=== PATIENT | male | born 1950 | race Caucasian/White ===

== ENCOUNTER → 2016-11-22 | Outpatient (CLI) | payer MEDICARE | LOC: LAB 15:17 | DX: E11.65 Type 2 diabetes mellitus with hyperglycemia (principal) ==

== ENCOUNTER → 2016-12-06 | Outpatient (CLI) | payer MEDICARE | LOC: RAD 16:07 | DX: E11.69 Type 2 diabetes mellitus with other specified complication (principal); R05 Cough ==

== ENCOUNTER → 2016-12-27 | Outpatient (CLI) | payer MEDICARE | LOC: RAD 14:42 | DX: E11.65 Type 2 diabetes mellitus with hyperglycemia (principal); R11.2 Nausea with vomiting, unspecified; R05 Cough ==

== ENCOUNTER → 2017-01-03 | Outpatient (CLI) | payer MEDICARE | LOC: LAB 14:04 | DX: E11.65 Type 2 diabetes mellitus with hyperglycemia (principal); N18.9 Chronic kidney disease, unspecified ==

== ENCOUNTER → 2017-02-07 | Outpatient (CLI) | payer MEDICARE | LOC: LAB 15:33 | DX: E11.65 Type 2 diabetes mellitus with hyperglycemia (principal) ==

== ENCOUNTER → 2017-09-25 | Outpatient (CLI) | payer MEDICARE ==
[2016-11-14 22:34] VITALS: BP 128/86
== END ==
LOC: LAB 15:15
DX: E11.9 Type 2 diabetes mellitus without complications (principal)

== ENCOUNTER 2018-06-04 17:04 | Emergency (ER) | payer MEDICARE ==
[2018-06-04] MEDS ORDERED: AMARYL 2MG T2 MG/TAB PO (17:23)
[2018-06-04] MEDS ORDERED: GLUCOPHAGE500 MG/TAB PO (17:23)
[2018-06-04] MEDS ORDERED: ZESTRIL10 M1 PO (17:24)
[2018-06-04] MEDS ORDERED: MICROZIDE12.5 M1 PO (17:24)
[2018-06-04 17:47] LABS: EOS # 0.3 (0.04-0.40); EOS % 1.7 % (0.0-4.0); HEMATOCRIT 44.8 % (42.0-52.0); HEMOGLOBIN 15.3 g/dL (13.5-18.0); MEAN CELL VOLUME 90 fl (78-100); MEAN CORPUSCULAR HEMOGLOBIN 31 pg (27-31); MEAN CORPUSCULAR HGB CONC 34 g/dL (33-37); MONO # 1.5 (0.20-0.80); PLATELET COUNT 370 K/mm3 (130-400); RED BLOOD COUNT 4.98 M/mm3 (4.20-5.60); RED CELL DISTRIBUTION WIDTH 12.4 % (11.5-14.5); WHITE BLOOD COUNT 16.5 K/mm3 (4.8-10.8)
[2018-06-04 17:48] LABS: NEU # 11.6 (1.40-6.50)
[2018-06-04 17:59] LABS: ALBUMIN 4.2 g/dL (3.5-5.0); BUN/CREATININE RATIO 20.2 (6.0-26.0); CALCIUM 9.2 mg/dL (8.4-10.2); POTASSIUM 4.5 mmol/L (3.6-5.0); TOTAL BILIRUBIN 0.7 mg/dL (0.2-1.3); TOTAL PROTEIN 7.9 g/dL (6.3-8.2)
[2018-06-04 19:10] LABS: URINE APPEARANCE CLEAR; URINE COLOR YELLOW
[2018-06-04 19:11] LABS: URINE BILIRUBIN NEGATIVE (NEGATIVE); URINE BLOOD TRACE (NEGATIVE); URINE KETONE NEGATIVE (NEGATIVE); URINE LEUKOCYTE ESTERASE NEGATIVE (NEGATIVE); URINE NITRATE NEGATIVE (NEGATIVE); URINE PROTEIN(semi-quant) TRACE mg/dL (NEGATIVE); URINE UROBILINOGEN NORMAL (NORMAL); URINE WBC 0-1 /hpf (0-3)
[2018-06-04 19:12] LABS: URINE MUCUS PRESENT (NOT PRESENT)
[2018-06-04 20:40] LABS: LIPASE 272 U/L (23-300)
[2018-06-04 23:55] VITALS: BP 117/68
[2018-06-05] MEDS ORDERED: HYDROCHLOROTHIA1 T14 PO (00:03)
== END 2018-06-04 23:55 | disposition home or self-care (01) ==
LOC: ED 17:04
PROVIDERS: Nurse Practitioner Family
DX: E11.65 Type 2 diabetes mellitus with hyperglycemia (principal); T38.3X6A Underdosing of insulin and oral hypoglycemic [antidiabetic] drugs, initial encounter; Z91.138 Patient's unintentional underdosing of medication regimen for other reason; E86.0 Dehydration; F15.10 Other stimulant abuse, uncomplicated; D72.829 Elevated white blood cell count, unspecified; Z79.84 Long term (current) use of oral hypoglycemic drugs; F17.200 Nicotine dependence, unspecified, uncomplicated; Z79.899 Other long term (current) drug therapy; R10.816 Epigastric abdominal tenderness; I10 Essential (primary) hypertension
CPT/HCPCS: J7030

== ENCOUNTER → 2018-09-03 | Outpatient (CLI) | payer MEDICARE ==
[~2018-09-03] MED LIST: AMARYL 2MG T2 MG/TAB PO; GLUCOPHAGE500 MG/TAB PO; HYDROCHLOROTHIA1 T14 PO; MICROZIDE12.5 M1 PO; ZESTRIL10 M1 PO
[2018-09-03 17:31] LABS: ALBUMIN 4.5 g/dL (3.5-5.0); CALCIUM 9.6 mg/dL (8.4-10.2); POTASSIUM 4.7 mmol/L (3.6-5.0); TOTAL BILIRUBIN 0.9 mg/dL (0.2-1.3); TOTAL PROTEIN 7.7 g/dL (6.3-8.2)
== END ==
LOC: LAB 16:09
PROVIDERS: Family Medicine
DX: E11.8 Type 2 diabetes mellitus with unspecified complications (principal); I10 Essential (primary) hypertension

== ENCOUNTER → 2019-03-05 | Outpatient (CLI) | payer MEDICARE | LOC: LAB 03-04 16:13 | DX: E11.9 Type 2 diabetes mellitus without complications (principal); I10 Essential (primary) hypertension ==

== ENCOUNTER → 2019-09-22 | Outpatient (CLI) | payer MEDICARE ==
[2019-09-22 15:16] LABS: ALBUMIN 4.6 g/dL (3.4-4.8); POTASSIUM 4.3 mmol/L (3.5-5.1)
[2019-09-22 15:18] LABS: CALCIUM 10.6 mg/dL (8.3-10.5)
[2019-09-22 15:19] LABS: TOTAL PROTEIN 7.9 g/dL (6.2-8.1)
[2019-09-22 15:20] LABS: TOTAL BILIRUBIN 0.4 mg/dL (0.2-1.2)
== END ==
LOC: LAB 14:51
PROVIDERS: Family Medicine
DX: Z12.5 Encounter for screening for malignant neoplasm of prostate (principal); E11.9 Type 2 diabetes mellitus without complications; I10 Essential (primary) hypertension

== ENCOUNTER → 2020-06-28 | Outpatient (CLI) | payer MEDICARE | LOC: LAB 13:49 | DX: E11.9 Type 2 diabetes mellitus without complications (principal); J44.9 Chronic obstructive pulmonary disease, unspecified ==

== ENCOUNTER → 2020-09-25 | Outpatient (CLI) | payer MEDICARE ==
[2020-09-25 14:26] LABS: POTASSIUM 4.2 mmol/L (3.5-5.1)
[2020-09-25 14:27] LABS: ALBUMIN 4.4 g/dL (3.4-4.8)
[2020-09-25 14:28] LABS: CALCIUM 9.3 mg/dL (8.3-10.5)
[2020-09-25 14:29] LABS: TOTAL PROTEIN 7.7 g/dL (6.2-8.1)
[2020-09-25 14:31] LABS: TOTAL BILIRUBIN 0.7 mg/dL (0.2-1.2)
== END ==
LOC: LAB 14:06
PROVIDERS: Family Medicine
DX: Z12.5 Encounter for screening for malignant neoplasm of prostate (principal); M19.011 Primary osteoarthritis, right shoulder; E11.9 Type 2 diabetes mellitus without complications; I10 Essential (primary) hypertension

== ENCOUNTER 2021-08-21 16:34 | Emergency (ER) | payer MEDICARE ==
[~2021-08-21] VITALS: Ht 167.6 cm; Wt 68.8 kg
[2021-08-21 17:00] VITALS: BP 152/74
[2021-08-21] MEDS ORDERED: GLUCOPHAGE PO (17:04)
[2021-08-21] MEDS ORDERED: SIMVASTATIN20 M1 PO (17:05)
[2021-08-21] MEDS ORDERED: HEART MED (17:06)
[2021-08-21 17:46] LABS: BASO # 0.03 K/mm3 (0.02-0.10); EOS # 0.02 K/mm3 (0.04-0.40); EOS % 0.1 % (0.0-4.0); HEMATOCRIT 39.8 % (42.0-52.0); HEMOGLOBIN 12.9 g/dL (13.5-18.0); LYMPH# 0.93 K/mm3 (1.50-4.00); MEAN CELL VOLUME 95 fl (78-100); MEAN CORPUSCULAR HEMOGLOBIN 31 pg (27-31); MEAN CORPUSCULAR HGB CONC 32 g/dL (33-37); MEAN PLATELET VOLUME 8.7 fl (7.4-10.4); MONO # 1.36 K/mm3 (0.20-0.80); NEU # 10.97 K/mm3 (1.40-6.50); PLATELET COUNT 259 K/mm3 (130-400); RED CELL DISTRIBUTION WIDTH 12.5 % (11.5-14.5); WHITE BLOOD COUNT 13.3 K/mm3 (4.8-10.8)
[2021-08-21 18:02] LABS: ALBUMIN 3.8 g/dL (3.4-4.8)
[2021-08-21 18:03] LABS: SODIUM 134 mmol/L (136-145)
[2021-08-21 18:04] LABS: CALCIUM 9.1 mg/dL (8.3-10.5)
[2021-08-21 18:05] LABS: GLUCOSE 132 mg/dL (75-110); TOTAL PROTEIN 6.7 g/dL (6.2-8.1)
[2021-08-21 18:06] LABS: CARBON DIOXIDE 21 mmol/L (23-31)
[2021-08-21 18:07] LABS: TOTAL BILIRUBIN 0.6 mg/dL (0.2-1.2)
[2021-08-21 18:10] LABS: AST-SGOT 22 U/L (5-34)
[2021-08-21 18:11] LABS: ALT/SGPT 21 U/L (0-55)
[2021-08-21 18:45] LABS: TROPONIN-I < 0.03 ng/mL (<0.030)
[2021-08-22] MEDS ORDERED: GLUCOPHAGE PO (11:47)
[2021-08-22] MEDS ORDERED: SIMVASTATIN20 M1 PO (11:47)
[2021-08-22] MEDS ORDERED: HYDROCHLOROTHIA1 T14 PO (11:48)
[2021-08-22] MEDS ORDERED: ALBUTEROL2.5 MG/3 M IH (11:50)
[2021-08-22] MEDS ORDERED: MORGIDOX 1X100100 MG PO (11:50)
[2021-08-22] MEDS ORDERED: PROAIR HFA0.09 MG/AC IH (11:50)
[2021-08-22] MEDS ORDERED: MUCINEX 60600 MG/TA1 PO (11:51)
[2021-08-22] MEDS ORDERED: PREDNISONE20 M1 PO (11:51)
== END 2021-08-21 20:30 | disposition other institution (70) ==
LOC: ED 16:34
PROVIDERS: Physician Assistant
DX: J15.7 Pneumonia due to Mycoplasma pneumoniae (principal); E11.9 Type 2 diabetes mellitus without complications; D72.829 Elevated white blood cell count, unspecified; R53.83 Other fatigue; R53.81 Other malaise; E78.5 Hyperlipidemia, unspecified; F17.200 Nicotine dependence, unspecified, uncomplicated; Z79.84 Long term (current) use of oral hypoglycemic drugs; Z79.899 Other long term (current) drug therapy; Z20.822 Contact with and (suspected) exposure to COVID-19
CPT/HCPCS: J0696; J7030

== ENCOUNTER 2021-08-21 20:20 | Inpatient (IN) | payer MEDICARE ==
[~2021-08-21] VITALS: Ht 167.6 cm; Wt 68.8 kg
[~2021-08-21 20:20] MED LIST changes: +GLUCOPHAGE PO; +HEART MED; +SIMVASTATIN20 M1 PO
[2021-08-21 21:52] VITALS: BP 121/72
[2021-08-22 01:54] VITALS: BP 121/68
[2021-08-22 05:36] VITALS: BP 126/79
[2021-08-22 06:59] LABS: HEMATOCRIT 40.6 % (42.0-52.0); LYMPH# 0.88 K/mm3 (1.50-4.00); MEAN CELL VOLUME 97 fl (78-100); MEAN CORPUSCULAR HEMOGLOBIN 31 pg (27-31); MEAN CORPUSCULAR HGB CONC 32 g/dL (33-37); MEAN PLATELET VOLUME 9.3 fl (7.4-10.4); MONO # 0.16 K/mm3 (0.20-0.80); NEU # 9.92 K/mm3 (1.40-6.50); PLATELET COUNT 270 K/mm3 (130-400); RED BLOOD COUNT 4.17 M/mm3 (4.20-5.60); RED CELL DISTRIBUTION WIDTH 12.6 % (11.5-14.5)
[2021-08-22 07:56] LABS: POTASSIUM 4.3 mmol/L (3.5-5.1)
[2021-08-22 07:57] LABS: CALCIUM 8.4 mg/dL (8.3-10.5)
[2021-08-22 09:22] VITALS: BP 123/71
[2021-08-22] MEDS ORDERED: SIMVASTATIN20 M1 PO (11:47)
[2021-08-22] MEDS ORDERED: GLUCOPHAGE PO (11:47)
[2021-08-22] MEDS ORDERED: HYDROCHLOROTHIA1 T14 PO (11:48)
[2021-08-22] MEDS ORDERED: ALBUTEROL2.5 MG/3 M IH (11:50)
[2021-08-22] MEDS ORDERED: PROAIR HFA0.09 MG/AC IH (11:50)
[2021-08-22] MEDS ORDERED: MORGIDOX 1X100100 MG PO (11:50)
[2021-08-22] MEDS ORDERED: PREDNISONE20 M1 PO (11:51)
[2021-08-22] MEDS ORDERED: MUCINEX 60600 MG/TA1 PO (11:51)
== END 2021-08-22 13:27 | disposition home or self-care (01) | DRG 195 ==
LOC: MED/SURG 20:20
PROVIDERS: ADMIT Nurse Practitioner Family
DX: J18.0 Bronchopneumonia, unspecified organism (principal); E11.9 Type 2 diabetes mellitus without complications; E78.5 Hyperlipidemia, unspecified; H91.90 Unspecified hearing loss, unspecified ear; R05.9 Cough, unspecified; F17.210 Nicotine dependence, cigarettes, uncomplicated; Z79.84 Long term (current) use of oral hypoglycemic drugs; Z88.0 Allergy status to penicillin; J15.7 Pneumonia due to Mycoplasma pneumoniae; D72.829 Elevated white blood cell count, unspecified; R53.83 Other fatigue; R53.81 Other malaise; Z79.899 Other long term (current) drug therapy; Z20.822 Contact with and (suspected) exposure to COVID-19
CPT/HCPCS: J0696; J1650; J1815; J2930; J7030

== ENCOUNTER → 2021-12-21 | Outpatient (CLI) | payer MEDICARE ==
[~2021-12-21] MED LIST changes: +ALBUTEROL2.5 MG/3 M IH; +MORGIDOX 1X100100 MG PO; +MUCINEX 60600 MG/TA1 PO; +PREDNISONE20 M1 PO; +PROAIR HFA0.09 MG/AC IH
[2021-12-21 12:50] LABS: ALBUMIN 3.8 g/dL (3.4-4.8); POTASSIUM 4.5 mmol/L (3.5-5.1)
[2021-12-21 12:52] LABS: TOTAL PROTEIN 6.6 g/dL (6.2-8.1)
[2021-12-21 12:54] LABS: TOTAL BILIRUBIN 0.7 mg/dL (0.2-1.2)
== END ==
LOC: LAB 12:20
PROVIDERS: Family Medicine
DX: Z12.5 Encounter for screening for malignant neoplasm of prostate (principal); E78.00 Pure hypercholesterolemia, unspecified; J44.9 Chronic obstructive pulmonary disease, unspecified; E11.9 Type 2 diabetes mellitus without complications; I10 Essential (primary) hypertension

== ENCOUNTER → 2022-03-01 | Outpatient (CLI) | payer MEDICARE | LOC: CARDREHAB 09:51 | DX: Z13.6 Encounter for screening for cardiovascular disorders (principal); I10 Essential (primary) hypertension; E11.9 Type 2 diabetes mellitus without complications | CPT/HCPCS: A9500 ==

== ENCOUNTER → 2022-03-21 | Outpatient (CLI) | payer MEDICARE | LOC: LAB 13:05 | DX: Z13.6 Encounter for screening for cardiovascular disorders (principal); E11.9 Type 2 diabetes mellitus without complications; I10 Essential (primary) hypertension; H61.21 Impacted cerumen, right ear ==

== ENCOUNTER → 2023-01-16 | Outpatient (CLI) | payer MEDICARE | LOC: LAB 14:45 | DX: Z13.6 Encounter for screening for cardiovascular disorders (principal); I10 Essential (primary) hypertension; E78.00 Pure hypercholesterolemia, unspecified; E11.9 Type 2 diabetes mellitus without complications ==

== ENCOUNTER → 2023-09-01 | Outpatient (CLI) | payer MEDICARE ==
[2023-09-01 18:00] LABS: POTASSIUM 4.7 mmol/L (3.5-5.1)
[2023-09-01 18:01] LABS: CALCIUM 9.6 mg/dL (8.3-10.5)
[2023-09-02 16:23] LABS: HEPATITIS C VIRUS ANTIBODY Negative (Negative)
== END ==
LOC: LAB 17:11
PROVIDERS: Family Medicine
DX: Z00.00 Encounter for general adult medical examination without abnormal findings (principal); Z12.11 Encounter for screening for malignant neoplasm of colon; Z13.6 Encounter for screening for cardiovascular disorders; Z11.59 Encounter for screening for other viral diseases; Z71.89 Other specified counseling; Z23 Encounter for immunization; E11.9 Type 2 diabetes mellitus without complications; E78.2 Mixed hyperlipidemia; I10 Essential (primary) hypertension

== ENCOUNTER → 2023-09-08 | Outpatient (CLI) | payer MEDICARE | LOC: RAD 08:40 | DX: Z13.6 Encounter for screening for cardiovascular disorders (principal) ==

== ENCOUNTER → 2024-10-07 | Outpatient (CLI) | payer MEDICARE ==
[2024-10-07 15:02] LABS: HEMATOCRIT 43.7 % (42.0-52.0); HEMOGLOBIN 13.8 g/dL (13.5-18.0); MEAN PLATELET VOLUME 8.9 fl (7.4-10.4); RED BLOOD COUNT 4.55 M/mm3 (4.20-5.60); RED CELL DISTRIBUTION WIDTH 12.6 % (11.5-14.5)
== END ==
LOC: LAB 14:50
PROVIDERS: Family Medicine
DX: Z23 Encounter for immunization (principal); I10 Essential (primary) hypertension; E78.00 Pure hypercholesterolemia, unspecified; E11.9 Type 2 diabetes mellitus without complications

== ENCOUNTER → 2025-01-07 | Outpatient (CLI) | payer MEDICARE ==
[2025-01-07 15:25] LABS: CALCIUM 10.4 mg/dL (8.3-10.5)
== END ==
LOC: LAB 14:58
PROVIDERS: Family Medicine
DX: I10 Essential (primary) hypertension (principal); E11.65 Type 2 diabetes mellitus with hyperglycemia; E78.00 Pure hypercholesterolemia, unspecified

== ENCOUNTER → 2025-02-01 | Outpatient (CLI) | payer MEDICARE ==
[2025-02-01 10:35] LABS: CALCIUM 9.2 mg/dL (8.3-10.5)
== END ==
LOC: LAB 10:12
PROVIDERS: Family Medicine
DX: I10 Essential (primary) hypertension (principal); E11.9 Type 2 diabetes mellitus without complications; E78.00 Pure hypercholesterolemia, unspecified